=== PATIENT | male | born 2000 | race Native Hawaiian/Other Pacific Islander ===

== ENCOUNTER 2023-09-05 10:32 | Emergency (ER) | payer OTHER ==
[~2023-09-05] VITALS: Ht 167.6 cm; Wt 67.6 kg
[2023-09-05] MEDS ORDERED: MUCI1TAB16 PO (10:51)
[2023-09-05 13:58] VITALS: BP 140/86; TEMP 97.9; O2SAT 99
== END 2023-09-05 14:03 | disposition home or self-care (01) ==
LOC: M ED 10:32
DX: J00 Acute nasopharyngitis [common cold] (principal); F17.290 Nicotine dependence, other tobacco product, uncomplicated

== ENCOUNTER 2024-09-23 17:34 | Emergency (ER) | payer OTHER ==
[~2024-09-23] VITALS: Ht 167.6 cm; Wt 68.0 kg
[~2024-09-23 17:34] MED LIST: MUCI1TAB16 PO
[2024-09-23] MEDS: METOCLOPRAMIDE INJ 10MG/2ML VIAL IV ONE (21:56)
[2024-09-23] MEDS: KETOROLAC 30 MG/ML 1ML VIAL IV ONE (21:56)
[2024-09-23] MEDS: ACETAMINOPHEN 500 MG TAB PO ONE (21:56)
[2024-09-23 22:36] LABS: BASO # 0.1 10^3/uL (0.0-0.2); BASO % 0.7 % (0.0-1.0); EOS # 0.1 10^3/uL (0.0-0.5); EOS % 1.2 % (0.0-3.0); HEMATOCRIT 44.1 % (42.0-52.0); HEMOGLOBIN 14.9 g/dl (13.5-17.5); LYMPH % 36.4 % (24.0-44.0); MEAN CORPUSCULAR HEMOGLOBIN 28.7 pg (27.0-33.0); MEAN CORPUSCULAR HGB CONC 33.8 g/dl (32.0-36.5); MONO # 0.6 10^3/uL (0.0-0.8); MONO % 7.1 % (2.0-8.0); NEUTROPHILS # 4.4 10^3/uL (1.5-8.5); NEUTROPHILS % 54.4 % (36.0-66.0); PLATELET COUNT, AUTOMATED 281 10^3/uL (150-450); RED BLOOD COUNT 5.19 10^6/uL (4.30-6.10); WHITE BLOOD COUNT 8.1 10^3/uL (4.0-10.0)
[2024-09-23 22:59] LABS: BLOOD UREA NITROGEN 20 MG/DL (9-23); CALCIUM LEVEL 9.6 MG/DL (8.5-10.1); CARBON DIOXIDE LEVEL 26 MMOL/L (20-31); CHLORIDE LEVEL 109 MMOL/L (98-107); CREATININE FOR GFR 0.85 MG/DL (0.70-1.30); GLOMERULAR FILTRATION RATE > 60.0 (>60); GLUCOSE, FASTING 76 MG/DL (60-100); SODIUM LEVEL 140 MMOL/L (136-145)
[2024-09-23 23:22] VITALS: BP 132/81; TEMP 96.9; O2SAT 100
== END 2024-09-23 23:24 | disposition home or self-care (01) ==
LOC: M ED 17:34
DX: G43.909 Migraine, unspecified, not intractable, without status migrainosus (principal); F17.200 Nicotine dependence, unspecified, uncomplicated
CPT/HCPCS: 70450; 80048; 85025; 96374; 99284; J1885; J2765